=== PATIENT | male | born 1990 | race Caucasian/White ===

== ENCOUNTER 2016-09-08 17:37 | Emergency (ER) | payer SELFPAY ==
[~2016-09-08] VITALS: Ht 177.8 cm; Wt 113.6 kg
[2016-09-08 18:37] VITALS: BP 126/69
--- NOTE | 2016-09-08 18:55 | NUR ---
REVIEWED ECG--PT OKAY TO WAIT IN ER LOBBY
--- NOTE | 2016-09-08 21:08 | NUR ---
Fam hamilton in ED - 09/08/16 at 2109 by ADAM PATIENT LEFT WITHOUT BEING SEEN BY DR. JOYNER. NO FURTHER CARE PROVIDED FOR PATIENT.
--- NOTE | 2016-09-08 21:09 | NUR ---
PATIENT LEFT WITHOUT BEING SEEN BY DR. HART. NO FURTHER CARE PROVIDED FOR PATIENT.
== END 2016-09-08 21:09 | disposition left against medical advice (07) ==
LOC: MED 17:37
PROC: 4A02X4Z Measurement of Cardiac Electrical Activity, External Approach (ICD-10-PCS; principal; 2016-09-08)
DX: R00.2 Palpitations (principal); Z53.21 Procedure and treatment not carried out due to patient leaving prior to being seen by health care provider
CPT/HCPCS: 82948; 93005; 99281; 99283